=== PATIENT | female | born 1970 | race Two or more races ===

== ENCOUNTER → 2019-01-24 11:45 | Outpatient (CLI) | payer OTHER ==
[~2019-01-24 11:45] MED LIST: KETO10TA2 PO; VITAMIN D350000 UNIT PO
== END | disposition home or self-care (01) ==
LOC: EKG 11:45 → LAB 11:45
DX: R00.2 Palpitations (principal)

== ENCOUNTER 2019-02-01 12:45 | Day surgery (SDC) | payer OTHER ==
[~2019-02-01 12:45] MED LIST changes: -KETO10TA2 PO
[2019-02-01] MEDS ORDERED: KETO10TA2 PO (19:38)
== END 2019-02-01 22:10 | disposition home or self-care (01) ==
LOC: CIR.AMB 12:45
DX: N84.0 Polyp of corpus uteri (principal)